=== PATIENT | female | born 1955 | race Caucasian/White ===

== ENCOUNTER 2022-02-04 09:18 | Day surgery (SDC) | payer OTHER, MEDICAID ==
[~2022-02-04] VITALS: Ht 149.9 cm; Wt 72.1 kg
[2022-02-04] MEDS ORDERED: diphenhydrAMINE 50 MG/ML VIAL ONE (11:57)
[2022-02-04] MEDS ORDERED: MIDAZOLAM 5 MG/5 ML VIAL ONE (11:58)
[2022-02-04] MEDS ORDERED: LIDOCAINE 2% 100 MG/5 ML UJET TP ONE (11:58)
[2022-02-04] MEDS ORDERED: fentaNYL citrate 0.05 MG/ML VIAL ONE (11:58)
[2022-02-04] MEDS ORDERED: fentaNYL citrate 0.05 MG/ML VIAL IVP ONE (13:00)
[2022-02-04] MEDS ORDERED: MIDAZOLAM 2 MG/2 ML VIAL IVP ONE (13:00)
[2022-02-04] MEDS ORDERED: diphenhydrAMINE 50 MG/ML VIAL IVP ONE (13:00)
== END 2022-02-04 14:00 | disposition home or self-care (01) ==
LOC: MDS 09:18 → MMU 09:18 → MDS 14:00
PROVIDERS: ATTEND Internal Medicine Gastroenterology
DX: K62.5 Hemorrhage of anus and rectum (principal); K64.9 Unspecified hemorrhoids; I10 Essential (primary) hypertension; E78.00 Pure hypercholesterolemia, unspecified; Z85.3 Personal history of malignant neoplasm of breast; Z79.899 Other long term (current) drug therapy; Z20.822 Contact with and (suspected) exposure to COVID-19
CPT/HCPCS: 45378; 87426; J1200; J2250; J3010

== ENCOUNTER 2023-09-29 08:13 | Day surgery (SDC) | payer OTHER ==
[2023-09-29] MEDS ORDERED: MIDAZOLAM 5 MG/5 ML VIAL ONE (09:01)
[2023-09-29] MEDS ORDERED: fentaNYL citrate 0.05 MG/ML VIAL ONE (09:01)
[2023-09-29] MEDS ORDERED: diphenhydrAMINE 50 MG/ML VIAL ONE (09:01)
[2023-09-29] MEDS ORDERED: MIDAZOLAM 2 MG/2 ML VIAL IVP ONE (10:20)
[2023-09-29] MEDS ORDERED: fentaNYL citrate 0.05 MG/ML VIAL IVP ONE (10:20)
== END 2023-09-29 10:34 | disposition home or self-care (01) ==
LOC: MDS 08:13 → MMU 08:14 → MDS 10:34
PROVIDERS: ATTEND Internal Medicine Gastroenterology
DX: Z09 Encounter for follow-up examination after completed treatment for conditions other than malignant neoplasm (principal); D12.2 Benign neoplasm of ascending colon; I10 Essential (primary) hypertension; E78.5 Hyperlipidemia, unspecified; F41.9 Anxiety disorder, unspecified; F32.A Depression, unspecified; M85.80 Other specified disorders of bone density and structure, unspecified site; Z85.3 Personal history of malignant neoplasm of breast; Z98.890 Other specified postprocedural states
CPT/HCPCS: 45385; 88305; J2250; J3010; J1200